=== PATIENT | male | born 1980 | race African-American/Black ===

== ENCOUNTER 2018-10-12 12:49 | Emergency (ER) | payer MEDICAID ==
[~2018-10-12] VITALS: Ht 177.8 cm; Wt 136.4 kg
[2018-10-12 12:59] VITALS: Ht 177.8 cm; Wt 136.4 kg
[2018-10-12 14:01] LABS: ALBUMIN 3.3 g/dL (3.4-5.0); ALKALINE PHOSPHATASE 84 U/L (46-116); ALT (SGPT) 16 U/L (10-68); BILIRUBIN - TOTAL 0.45 mg/dL (0.2-1.3); CALC OSMOLALITY 277 mosm/kg (275-300); CALCIUM 8.7 mg/dL (8.5-10.1); CARBON DIOXIDE 26.9 mmol/L (21.0-32.0); CHLORIDE - SERUM 105 mmol/L (98-107); CREATININE - SERUM 0.9 mg/dL (0.6-1.3); GLUCOSE 107 mg/dL (74-106); POTASSIUM - SERUM 4.5 mmol/L (3.5-5.1); PROTEIN - SERUM 7.6 g/dL (6.4-8.2); SODIUM 140 mmol/L (136-145); UREA NITROGEN 10 mg/dL (7-18); eGFR NON AFRICAN AMERICAN > 90 mL/min (90-120)
[2018-10-12 14:02] LABS: BASOPHILS 0.2 % (0-2); EOSINOPHILS 1.3 % (0-7); HEMATOCRIT 40.5 % (42.0-54.0); IMMATURE GRANULOCYTES 0.1 % (0-5); LYMPHOCYTES 25.6 % (15-50); MCH 25.8 pg (26.0-34.0); MCHC 32.1 g/dL (31.0-37.0); MCV 80.5 fL (80.0-100.0); MONOCYTES 11.7 % (2-11); NEUTROPHILS 61.1 % (40-80); PLATELET COUNT 202 10x3/uL (130-400); RBC 5.03 10x6/uL (4.20-6.10); RDW 15.1 % (11.5-14.5); WBC 10.9 10x3/uL (4.8-10.8)
[2018-10-12 14:12] LABS: CKMB 1.8 U/L (0.0-3.6); CREATINE KINASE 328 UL (21-232); PRO BNP 56 pg/mL (0-125); TROPONIN-I < 0.017 ng/mL (0.000-0.060)
[2018-10-12] MEDS ORDERED: NAPROSYN500 MG PO (16:32)
[2018-10-12 16:48] VITALS: BP 158/88
== END 2018-10-12 16:48 | disposition home or self-care (01) ==
LOC: D.ER 12:49
PROVIDERS: Family Medicine
DX: M93.98 Osteochondropathy, unspecified other (principal); R07.9 Chest pain, unspecified; E66.01 Morbid (severe) obesity due to excess calories

== ENCOUNTER 2019-01-16 08:15 | Observation (INO) | payer MEDICAID ==
[~2019-01-16] VITALS: Ht 177.8 cm; Wt 178.7 kg
--- NOTE | ~2019-01-16 | HEMODYNAMI ---
PATIENT:CHANDRAKANT VILLELA MEDICAL RECORD: [id number] : [birth year] [address] [id number] ADMISSION DATE: 01/16/19 Generatedon:01/17/201911:04 Patient name: CHANDRAKANT VILLELA Patient #: [id number] SSN: : 1980 Date of study: 01/17/2019 Page: Of Hemodynamic Procedure Report Patient Data Patient Demographics Procedure consent was obtained First Name: CHANDRAKANT Gender: Male Last Name: TIKA : 1980 Patient #: [id number] Age: 38 year(s) Race: Black Additional ID: [id number] Contact details Address: [address] [place] [address] State: [place] City: [facility] Zip code: [address] Past Medical History Allergies: No known allergies Admission Admission Data Admission Date: 01/16/2019 Admission Time: 12:27 Room #: [facility] Height (in.): 69.69 BSA: 2.78 (m2) Height (cm.): 177 BMI: 57.04 (kg/m2) Weight (lbs.): 393.95 Weight (kg.): 178.69 Lab Results Lab Result Date: 01/17/2019 Lab Result Time: 0:00 Biochemistry Name Units Result Min Max BUN mg/dl 11 --(-*--)-- 7 18 Creatinine mg/dl 1 --(--*-)-- 0.6 1.3 CBC Name Units Result Min Max Hematocrit % 42.4 --(*---)-- 42 54 Hemoglobin g/dl 13.5 --(*---)-- 13.5 17.5 Procedure Procedure Types Cath Procedure Diagnostic Procedure C [facility] w/Coronaries Procedure Description Procedure Date Procedure Date: 01/17/2019 Procedure Start Time: 10:50 Procedure End Time: 11:02 Procedure Staff Name Function Gaudencio Calvillo MD Performing Physician Mary Drake RT Monitor Chin Roman RN Nurse Addi Justin RT Scrub Procedure Data Cath Procedure Fluoroscopy Diagnostic fluoroscopy Total fluoroscopy Time: 3.7 time: 3.7 min min Diagnostic fluoroscopy Total fluoroscopy dose: 768 dose: 768 mGy mGy Contrast Material Contrast Material Type Amount (ml) Isovue 300 61 Entry Location Entry Primary Successful Side Size Upsize Upsize Entry Closure Chandra ccessful Closure Location (Fr) 1 (Fr) 2 (Fr) Remarks Device Remarks Radial Right 6 Fr Mechanical artery Short Compression Estimated blood loss: 5 ml Diagnostic catheters Device Type Used For End Catheter Placement DIAGNOSTIC Uxbridge 110cm 5 Procedure Fr catheter ([id number]) Procedure Complications No complications Procedure Medications Medication Administration Route Dosage Oxygen 8 l/min Lidocaine 2% added to field 20 Heparin Flush Bag added to field 2 bags (1000units/500ml NS) 0.9% NaCl I.V. 100 ml/hr Radial Cocktail I.A. 1 syringe (Verapomil 2mg/Nitro 400mcg/Heparin 1500units) Versed I.V. 1 mg Fentanyl I.V. 50 mcg Versed I.V. 1 mg Fentanyl I.V. 50 mcg Fentanyl I.V. 50 mcg Fentanyl I.V. 50 mcg Hemodynamics Rest BSA: 2.78 (m2) HGB: 13.5 (g/dl) O2 Consumption: Estimated: 329.97 (ml/min) O2 Co nsumption indexed: Estimated:118.69 (ml/min/m) Heart Rate: 60 (bpm) Pressure Samples Time Site Value (mmHg) Purpose Heart Use Rate(bpm) 10:53 LV 141/16,22 Snapshot 62 10:53 LV 140/17,23 Snapshot 60 10:54 AO 141/104(121) Pullback 72 10:54 LV 144/15,24 Pullback 72 Gradients Valve Time Site 1 Site 2 Mean SEP/DFP Peak To Heart Use (mmHg) (sec/min) Peak Rate (mmHg) (bpm) Aortic 10:54 LV AO 4 14 3 72 144/15,24 141/104(121) Calculations Valve P-P Mean Valve Index Valve Source Name Gradient Area Flow (cm2) Aortic 3 4 3 4 Snapshots Pre Cath Intra NCS Post Cath Vital Signs Time Heart Resp SPO2 etCO2 NIBP (mmHg) Rhythm Pain Sedation Rate (ipm) (%) (mmHg) Status Level (bpm) 10:37:18 56 12 97 0 179/109(139) NSR 0 (11) 10(A) , No pain 10:42:33 58 20 98 0 163/116(129) NSR 0 (11) 10(A) , No pain 10:46:47 55 23 94 0 147/101(119) NSR 0 (11) 10(A) , No pain 10:50:55 59 16 98 0 162/101(135) NSR 0 (11) 9(A) , No pain 10:55:09 66 14 93 0 155/96(131) NSR 0 (11) 9(A) , No pain 10:59:19 59 13 96 0 156/109(129) NSR 0 (11) 10(A) , No pain Medications Time Medication Route Dose Verified Delivered Reason Notes Effectiveness by by 10:44:23 Oxygen simple 8 l/min Gaudencio Neely used for mask St Billy Roman RN procedure 10:44:31 Lidocaine 2% added 20ml Gaudencio Goodrichory for local to vial [facility] anesthetic field MD FARRELL 10:44:49 Heparin Flush added 2 bags Gaudencio Ratliff used for Bag to [facility] procedure (1000units/500ml field MD FARRELL NS) 10:44:58 0.9% NaCl I.V. 100 Gaudencio Neely Per ml/hr St Billy Roman RN physician 10:47:02 Versed I.V. 1 mg Gaudencio Vasquezie for sedation St Billy Roman RN, MD 10:47:08 Fentanyl I.V. 50 mcg Gaudencio Vasquezie for sedation St Billy Roman RN, MD 10:50:49 Versed I.V. 1 mg Gaudencio Neely for sedation St Billy Roman RN, MD 10:50:52 Fentanyl I.V. 50 mcg Gaudencio Vasquezie for sedation St Billy Roman RN, MD 10:53:04 Radial Cocktail I.A. 1 Gaudencio Ratliff for (Verapomil syringe [facility] vasodilation 2mg/Nitro MD FARRELL 400mcg/Heparin 1500units) 10:53:14 Fentanyl I.V. 50 mcg Gaudencio Vasquezie for sedation St Billy Roman RN, MD 10:56:32 Fentanyl I.V. 50 mcg Gaudencio Vasquezie for sedation St Billy Roman RN, MD Procedure Log Time Note 10:07:45 Addi AMES(R) sent for patient. Start room use. 10:07:53 Time tracking: Call back (After hours or weekends) 10:08:04 Plan of Care:Hemodynamics will remain stable., Cardiac rhythm will remain stable., Comfort level will be maintained., Respiratory function will remain adequate., Patient/ family verbilizes understanding of procedure., Procedure tolerated without complication., Recovers from procedure without complications.. 10:21:23 Signed procedure consent form obtained from patient. 10:21:25 Diagnostic Cath status Elective 10:22:12 Patient Weight : 393.95 lbs 10::18 Patient Height : 69.69 inches 10:22:33 Patient allergic to No known allergies 10::12 Lab Result : BUN 11 mg/dl 10::12 Lab Result : Creatinine 1 mg/dl 10::12 Lab Result : Hemoglobin 13.5 g/dl 10::12 Lab Result : Hematocrit 42.4 % 10:29:26 Patient received from Med II to CCL 1 Alert and oriented. Tansferred to table in Supine position. 10:29:27 Warm blankets applied, and alexandrea hugger turned on for patient comfort. 10:29:28 Correct patient and procedure confirmed by team. 10:29:28 ECG and BP/O2 sat monitors applied to patient. 10:36:09 Vital chart was started 10:42:46 Rhythm: sinus rhythm 10:42:48 Baseline sample Acquired. 10:42:50 Full Disclosure recording started 10:42:53 Pre-procedure instructions explained to patient. 10:42:53 Pre-op teaching completed and patient verbalized understanding. 10:42:55 Family in patients room. 10:42:56 Patient NPO since Midnight. 10:42:58 Is patient on blood thinner?No 10:42:59 Patient diabetic? No. 10:43:01 Previous problem with sedation/anesthesia? No ? 10:43:03 Snore? Yes 10:43:04 Sleep apnea? Yes 10:43:05 Deviated septum? No 10:43:06 Opens mouth fully? Yes 10:43:07 Sticks out tongue? Yes 10:43:09 Airway obstruction? No ? 10:43:11 Dentures? No ? 10:43:13 Modified Claudio's test Ulnar < 7 seconds 10:43:15 Patient pain scale 0/10 ?. 10:43:24 IV patent on arrival in left forearm with 0.9% NaCl at [facility]. 10:43:27 Lab results completed and on chart. 10:43:30 Right Radial & Right Groin area was prepped with chlora-prep and draped in sterile fashion 10:43:31 Alarms reviewed by R. N. 10:43:31 Sharps counted by scrub and verified by R.N. 10:43:33 --------ALL STOP TIME OUT------ 10:43:33 Final Timeout: patient, procedure, and site verified with staff and physician. All members of the team are in agreement. 10:43:35 Right Radial & Right Groin site verified by team. 10:43:37 Fire Safety Assessment: A--An alcohol-based skin anteseptic being used preoperatively., C--Open oxygen or nitrous oxide is being used., D--An ESU, laser, or fiber-optic light is being used. 10:43:40 Physical assessment completed. ASA score P 2 - A patient with mild systemic disease as per Gaudencio Calvillo MD. 10:43:44 Sedation plan: IV Moderate Sedation Medication:Versed, Fentanyl 10:43:49 Use device set Radial Dx or PCI 10:43:49 ACIST Syringe (21294) opened to sterile field. 10:43:50 Bag Decanter () opened to sterile field. 10:43:51 ACIST Hand Control (23168) opened to sterile field. 10:43:51 ACIST Manifold (01426) opened to sterile field. 10:43:52 Tegaderm 4 x 4 (1626W) opened to sterile field. 10:43:53 Medline Cath Pack ([id number]) opened to sterile field. 10:43:53 DIAGNOSTIC WIRE .035 260cm J wire (709326) opened to sterile field. 10:43:54 MBrace Wrist Support ([id number]) opened to sterile field. 10:43:55 SHEATH 6FR Slender (64-7550) opened to sterile field. 10:44:23 Oxygen 8 l/min simple mask was administered by Chin Roman RN; used for procedure; 10:44:31 Lidocaine 2% 20ml vial added to field was administered by Gaudencio Calvillo MD; for local anesthetic; 10:44:49 Heparin Flush Bag (1000units/500ml NS) 2 bags added to field was administered by Gaudencio Calvillo MD; used for procedure; 10:44:58 0.9% NaCl 100 ml/hr I.V. was administered by Chin Roman RN; Per physician; 10:47:02 Versed 1 mg I.V. was administered by Chin Roman RN; for sedation; 10:47:08 Fentanyl 50 mcg I.V. was administered by Chin Roman RN; for sedation; 10:50:09 Procedure started. 10:50:10 Zero performed for pressure channel P1 10:50:31 Local anesthetic to right radial artery with Lidocaine 2% by Gaudencio Calvillo MD.INITIAL ACCESS ONLY 10:50:49 Versed 1 mg I.V. was administered by Chin Roman RN; for sedation; 10:50:52 Fentanyl 50 mcg I.V. was administered by Chin Roman RN; for sedation; 10:52:03 A 6 Fr Short sheath was inserted into the Right Radial artery 10:52:35 A DIAGNOSTIC Uxbridge 110cm 5 Fr catheter ([id number]) was advanced over the wire and used for Procedure. 10:53:04 Radial Cocktail (Verapomil 2mg/Nitro 400mcg/Heparin 1500units) 1 syringe I.A. was administered by Gaudencio Calvillo MD; for vasodilation; 10:53:10 LV gram done using SINGH 10:53:12 Injector settings: Ml/sec: 5, Volume: 15, 10:53:14 Fentanyl 50 mcg I.V. was administered by Chin Roman RN; for sedation; 10:53:42 LV hemodynamics recorded. 10:53:57 EF : 55 % 10:54:30 RCA angiography performed. 10:55:03 Catheter exchanged over wire. 10:55:14 UNABLE TO ENGAGE LCA 10:55:32 GUIDE 5FR EBU 3.5 catheter ([id number]) opened to sterile field. 10:56:18 5 Fr EBU 3.5 guide catheter was inserted over the wire 10:56:32 Fentanyl 50 mcg I.V. was administered by Chin Roman RN; for sedation; 11:00:23 LCA angiography performed. 11:00:27 Guide catheter removed. 11:00:32 Procedure ended.(Physican Out) 11:00:43 TR BAND Large ([id number]) opened to sterile field. 11:00:53 Sheath removed intact; hemostasis achieved with Mechanical Compression to the Right Radial artery. 11:01:25 Fluoroscopy time 03.70 minutes. 11::29 Fluoroscopy dose: 768 mGy 11::29 Flurop Dose total: 768 11::33 Contrast amount:Isovue 300 61ml. 11::34 Sharps counted by scrub and verified by R.N. 11:01:36 TR band inflated with 12cc of air. 11:01:39 Post-procedure physical assessment completed. ASA score P 2 - A patient with mild systemic disease as per Gaudencio Calvillo MD. 11:01:43 Post procedure rhythm: sinus rhythm 11::46 Estimated blood loss: 5 ml 11::48 Post procedure instruction explained to patient.Patient verbalizes understanding. 11::48 Patient needs reinforcement of post procedure teaching. 11:02:19 Procedure and supply charges have been captured, reviewed, submitted and are correct. 11:02:21 Procedure Complication : No complications 11:02:22 Vital chart was stopped 11:02:23 See physician's report for complete and final results. 11:02:25 Report given to Med II. 11:02:28 Patient transfered to Med II with Bed. 11:02:33 Procedure ended. 11:02:33 Full Disclosure recording stopped ::39 End room use (Document Last) Device Usage Item Name Manufacture Quantity Catalog Hospital Part Current Minimal Lot# / Number Charge Number Stock Stock Serial# Code ACIST Acist 1 98852 017846 529404 663119 20 Syringe Medical (27235) Systems Inc Bag Microtek 1 304247 41481 121187 5 Decanter Medical Inc. () ACIST Hand Acist 1 14660 670828 745086 324212 5 Control Medical (90281) Systems Inc ACIST Acist 1 80335 807020 231335 092503 5 Manifold Medical (71106) Systems Inc Tegaderm 4 3M 1 1626W 111204 984112 448439 5 x 4 (1626W) Medline Medline 1 [id number] 465348 73856 800940 5 Cath Pack ([id number]) DIAGNOSTIC St Matt 1 352757 778517 206234 988452 30 WIRE .035 260cm J wire (772937) MBrace Advanced 1 140-0250-00 528795 49163 288529 5 Wrist Vascular Support Dynamics ([id number]) SHEATH 6FR Terumo 1 [id number] 466541 096715 004064 5 Slender (80-7970) DIAGNOSTIC Terumo 1 40-8971 746778 722598 649882 5 Uxbridge 110cm 5 Fr catheter (996271) GUIDE 5FR Medtronic 1 [id number] 108185 337188 428322 1 EBU 3.5 catheter ([id number]) TR BAND Terumo 1 [id number] 842995 201630 864384 40 Large ([id number]) Signature Audit Edgar Stage Time Signature Unsigned Intra-Procedure 01/17/2019 Mary Drake 11:04:49 AM RT(R) Signatures Monitor : Mary Drake Signature : RT Date : Time : [address] [address]
--- NOTE | ~2019-01-16 | CN ---
PATIENT NAME:CHANDRAKANT VILLELA MEDICAL RECORD: [id number] : 78 LOCATION:[address] D.2112 ADMIT DATE: 01/16/19 ACCOUNT: [id number] CONSULTING PHYSICIAN: IDA ARMIJO MD REFERRING PHYSICIAN: ARIAN UP MD DATE OF CONSULTATION: 01/17/2019 HISTORY: A 38-year-old gentleman with strong family history of coronary artery disease including father passing away at age 38 with sudden cardiac , presented with marked hypertension and angina as well as abnormal ECG symptoms. It really began over the past week. He has previously been diagnosed with hypertension; however, not taking his medications at all. We are asked to see him concerning his cardiovascular status. PAST MEDICAL HISTORY: Includes history of hypertension, untreated. ALLERGIES: None known. MEDICATIONS: None currently. SOCIAL HISTORY: Nonsmoker and nondrinker. No set exercise program, but is able to take care of ADLs. No assistance with ambulation, etc. REVIEW OF SYSTEMS: The patient reports easy bruising but reports no swollen glands. The patient reports no fever, no night sweats, no significant weight gain, no significant weight loss. No significant exercise tolerance. The patient reports no dry eyes, no irritation, no vision change. Patient reports no difficulty hearing and no ear pain. Patient reports no frequent nose bleeds or nose and sinus problems. Patient reports on arm pain on exertion. No shortness of breath while lying down. No history of heart murmur. Patient reports no cough, no wheezing or coughing up blood. Patient reports no abdominal pain, no vomiting. Normal appetite. No diarrhea and not vomiting blood. No nausea and no constipation. Patient reports no incontinence. No difficulty urinating. No hematuria. No increased frequency. Patient reports no muscle aches. No weakness, no arthralgias, no back pain. No swelling of the extremities. Patient reports no abnormal mole, no jaundice, no rashes. Reports no loss of consciousness. No weakness and no numbness. No seizures, dizziness, or headaches. The patient reports no depression, no sleep disturbance, feeling safe in a relationship and no alcohol abuse. Patient reports on fatigue. Reports no runny nose or sinus pressure. No itching, no hives, and no frequent sneezing. PHYSICAL EXAMINATION: GENERAL: Pleasant gentleman, in no acute distress, appears stated age. VITAL SIGNS: Blood pressure 146/94. Pulse 63 and regular. HEENT: Normocephalic and atraumatic. NECK: No JVD or bruit. HEART: Regular. S4 gallop is noted. LUNGS: Diminished breath sounds in both bases. ABDOMEN: Soft and nontender. EXTREMITIES: Pulses are 1+ with 1+ edema. DIAGNOSTIC DATA: ECG has poor R wave progression. Q waves in lead III. IMPRESSION: CONSULT REPORT [id number] CHANDRAKANT VILLELA 1. Hypertensive urgency. 2. Acute coronary syndrome. PLAN: Plan is for diagnostic angiography and intervention based on above. TRANSINT:[id number] Voice Confirmation ID: [id number] DOCUMENT ID: [id number] IDA ARMIJO MD CC: [id number] DICTATION DATE: 01/17/19933 MARKETING ASSISTANT RETAIL DIVISION: 01/17/19 1117 ADM IN [place] [address] [place] [id number]
--- NOTE | ~2019-01-16 | OP ---
PATIENT NAME: CHANDRAKANT VILLELA MEDICAL RECORD: [id number] :[birth year] LOCATION:D.M2 D.2 ADMISSION DATE:01/16/19 SURGEON: IDA ARMIJO MD DATE OF OPERATION: 01/17/2019 PROCEDURE: Left heart catheterization, selective coronary angiography, right radial approach. CATHETERS: Westlake catheter, radial sheath. The procedure was well tolerated. The patient was returned to the pruitt. Sheath was removed. TR band was placed. FINDINGS: Left ventriculography in 30-degree SINGH view: Normal wall motion. Normal systolic function. CORONARY ANATOMY: LEFT MAIN: Left main is free of disease. LAD: Free of disease as is the diagonal system. CIRCUMFLEX: Circumflex is free of disease as is the marginal system. RIGHT CORONARY ARTERY: Dominant artery, free of disease. IMPRESSION: Normal LV systolic function. Normal coronary anatomy. TRANSINT:[id number] Voice Confirmation ID: [id number] DOCUMENT ID: [id number] IDA ARMIJO MD CC: [id number] DICTATION DATE: 01/17/19 1103 PROFESSOR OF PUBLIC ADMINISTRATION: 01/17/19 1120 ADM IN [facility] [address] [place] [id number]
[~2019-01-16 08:15] MED LIST: NAPROSYN500 MG PO
[2019-01-16 09:20] LABS: BASOPHILS 0.2 % (0-2); EOSINOPHILS 1.8 % (0-7); HEMATOCRIT 42.5 % (42.0-54.0); HEMOGLOBIN 13.6 g/dL (13.5-17.5); IMMATURE GRANULOCYTES 0.2 % (0-5); LYMPHOCYTES 26.2 % (15-50); MCH 25.2 pg (26.0-34.0); MCV 78.7 fL (80.0-100.0); MEAN PLATELET VOLUME 11.9 fL (7.4-10.4); NEUTROPHILS 57.6 % (40-80); PLATELET COUNT 222 10x3/uL (130-400); RDW 14.7 % (11.5-14.5); WBC 9.7 10x3/uL (4.8-10.8)
[2019-01-16 09:30] LABS: INR 1.11 (0.85-1.17); PROTIME 13.8 SECONDS (11.6-15.0)
[2019-01-16 09:31] LABS: APTT 32.2 SECONDS (22.8-39.4)
[2019-01-16 09:32] LABS: D-DIMER-QUANTITATIVE < 0.27 ug/mLFEU (0.20-0.54)
[2019-01-16 09:36] LABS: ALBUMIN 3.4 g/dL (3.4-5.0); ALKALINE PHOSPHATASE 85 U/L (46-116); ALT (SGPT) 24 U/L (10-68); BILIRUBIN - TOTAL 0.36 mg/dL (0.2-1.3); CALC OSMOLALITY 275 mosm/kg (275-300); CALCIUM 9.3 mg/dL (8.5-10.1); CHLORIDE - SERUM 103 mmol/L (98-107); GLUCOSE 97 mg/dL (74-106); POTASSIUM - SERUM 4.4 mmol/L (3.5-5.1); PROTEIN - SERUM 8.3 g/dL (6.4-8.2); SODIUM 138 mmol/L (136-145); UREA NITROGEN 13 mg/dL (7-18); eGFR NON AFRICAN AMERICAN 88 mL/min (90-120)
[2019-01-16 09:47] LABS: CKMB 1.8 U/L (0.0-3.6); LIPASE 83 U/L (73-393); TROPONIN-I < 0.017 ng/mL (0.000-0.060)
[2019-01-16 10:28] LABS: THYROID STIMULATING HORMONE 1.15 uIU/mL (0.36-3.74)
[2019-01-16 10:34] VITALS: BP 172/110
--- NOTE | 2019-01-16 10:43 | NUR ---
UNABLE TO PROVIDE URINE SAMPLE AT THIS TIME, WILL TRY AGAIN
[2019-01-16 12:08] VITALS: BP 165/111
[2019-01-16 13:37] LABS: APPEARANCE CLEAR (CLEAR); BILIRUBIN NEGATIVE (NEGATIVE); COLOR YELLOW (YELLOW); GLUCOSE NEGATIVE (NEGATIVE); KETONE NEGATIVE (NEGATIVE); NITRITE NEGATIVE (NEGATIVE); PROTEIN NEGATIVE (NEGATIVE); UROBILINOGEN NORMAL (NORMAL)
[2019-01-16 13:56] VITALS: BP 126/80
--- NOTE | 2019-01-16 15:04 | NUR ---
RECIEVED PATIENT VIA WHEELCHAIR FROM ED. PATIENT ALERT/ORIENTED AND AMBULATORY. ANSWERS APPROPRIATLEY. 20 GAUGE IV TO LEFT AC. PATIENT SITTING TO SIDE OF BED. NO DISTRESS.
[2019-01-16] MEDS ORDERED: ACETAMINOPHEN500 M1 PO (15:07)
[2019-01-16] MEDS ORDERED: IBUPROFEN600 MG PO (15:08)
[2019-01-16 16:46] VITALS: BP 166/110
[2019-01-16 17:14] VITALS: BP 166/110; Ht 177.8 cm; Wt 178.7 kg
--- NOTE | 2019-01-16 18:03 | NUR ---
RESTING IN BED WITH LIGHTS OFF, ATTENTION TOWARD TELEVISION. CALL LIGHT ANSWERED, PATIENT STATED IT WAS AN ACCIDENT. NO DISTRESS. DENIES NEEDS.
--- NOTE | 2019-01-16 19:40 | NUR ---
RECEIVED REPORT, WILL ASSUME CARE OF PT, DENIES ANY NEEDS AT THIS TIME, BED IS LOW, SRX2, CALL LIGHT IN REACH, WILL CONTINUE PLAN OF CARE
[2019-01-16 20:00] VITALS: BP 146/85
--- NOTE | 2019-01-16 21:42 | NUR ---
PM MEDS GIVEN WITH A GLASS OF WATER, WILL CONTINUE PLAN OF CARE
--- NOTE | 2019-01-16 22:30 | NUR ---
COMPLAINS OF HEADACHE, GAVE NORCO ORDER
[2019-01-17] VITALS (7 sets, daily range): BP systolic 132–148; BP diastolic 75–94
[2019-01-17 01:02] LABS: UDS - AMPHET NEGATIVE QUAL (NEGATIVE); UDS - BARB NEGATIVE QUAL (NEGATIVE); UDS - BENZO NEGATIVE QUAL (NEGATIVE); UDS - COCAINE NEGATIVE QUAL (NEGATIVE); UDS - OPIATE POSITIVE QUAL (NEGATIVE); UDS - PCP NEGATIVE QUAL (NEGATIVE); UDS - THC NEGATIVE QUAL (NEGATIVE)
[2019-01-17 04:57] LABS: BASOPHILS 0.2 % (0-2); EOSINOPHILS 1.8 % (0-7); HEMATOCRIT 42.4 % (42.0-54.0); HEMOGLOBIN 13.5 g/dL (13.5-17.5); IMMATURE GRANULOCYTES 0.3 % (0-5); LYMPHOCYTES 29.1 % (15-50); MCH 25.3 pg (26.0-34.0); MCHC 31.8 g/dL (31.0-37.0); MCV 79.4 fL (80.0-100.0); MEAN PLATELET VOLUME 11.9 fL (7.4-10.4); MONOCYTES 14.7 % (2-11); NEUTROPHILS 53.9 % (40-80); PLATELET COUNT 216 10x3/uL (130-400); RBC 5.34 10x6/uL (4.20-6.10); RDW 14.9 % (11.5-14.5); WBC 9.8 10x3/uL (4.8-10.8)
--- NOTE | 2019-01-17 05:00 | NUR ---
ASSESSMENT REVIEWED AND IN AGREEMENT. PT RESTING WITH NO DISTRESS. MONITOR AND CPOC.
[2019-01-17 05:44] LABS: ALBUMIN 3.2 g/dL (3.4-5.0); ALKALINE PHOSPHATASE 73 U/L (46-116); ALT (SGPT) 18 U/L (10-68); BILIRUBIN - TOTAL 0.46 mg/dL (0.2-1.3); CALC OSMOLALITY 263 mosm/kg (275-300); CALCIUM 9.3 mg/dL (8.5-10.1); CARBON DIOXIDE 24.9 mmol/L (21.0-32.0); CHLORIDE - SERUM 102 mmol/L (98-107); CREATINE KINASE 174 UL (21-232); GLUCOSE 94 mg/dL (74-106); PROTEIN - SERUM 7.8 g/dL (6.4-8.2); SODIUM 132 mmol/L (136-145); TROPONIN-I < 0.017 ng/mL (0.000-0.060); UREA NITROGEN 11 mg/dL (7-18); eGFR NON AFRICAN AMERICAN 88 mL/min (90-120)
--- NOTE | 2019-01-17 07:29 | NUR ---
AM ROUNDS COMPLETED. INTRODUCED MYSELF TO PT PRIMARY RN FOR TODAYS SHIFT. PT IS A&O SITTING UP IN BED WITH SPOUSE AT BEDSIDE. SHIFT ASSESSMENT COMPLETED. PT STATES HE SLEPT OKAY BUT STILL C/O PRESSURE AND THROBBING IN HIS HEAD AND FACIAL. PROVIDED PT WITH PRN PAIN MEDICATION REQUESTED. PT SITTING UP IN BED WAITING ON BREAKFAST. NO FURTHER NEEDS. CL IN REACH, BED IN LOWEST, SIDE RAILS X2. WILL CTM.
--- NOTE | 2019-01-17 08:59 | NUR ---
AT BEDSIDE FOR CONSULT DISCUSSING DISEASE PROCESS AND PLANNING. PT WILL HAVE A CARDIAC CATH LATER TODAY AND IS NPO STARTING NOW. PT VERBALIZED UNDERSTANDING AND DENIES ANY QUESTIONS OR CONCERNS. PT IS GOING TO PREP AND SHOWER HIMSELF. SUPPLIES GIVEN. WILL OBTAIN CONSENTS AND CONTINUE WITH PLAN OF CARE.
--- NOTE | 2019-01-17 09:48 | NUR ---
NURSING INFORMATICS SPECIALIST CALLED TO PRE-OP PT. PRE-OP MEDICATIONS GIVEN AND CONSENTS SIGNED AND PLACED IN CHART. PT IN BED READY TO GO WAITING ON NURSING INFORMATICS SPECIALIST.
--- NOTE | 2019-01-17 10:23 | NUR ---
PT LEAVING FOR RESIDENT CARE SUPERVISOR NOW. DENIES ANY CURRENT NEEDS. WILL CTM.
[2019-01-17 10:29] LABS: CALC OSMOLALITY 272 mosm/kg (275-300); CARBON DIOXIDE 27.7 mmol/L (21.0-32.0); CHLORIDE - SERUM 101 mmol/L (98-107); GLUCOSE 90 mg/dL (74-106); POTASSIUM - SERUM 4.1 mmol/L (3.5-5.1); SODIUM 137 mmol/L (136-145); UREA NITROGEN 11 mg/dL (7-18); eGFR NON AFRICAN AMERICAN 88 mL/min (90-120)
--- NOTE | 2019-01-17 11:26 | NUR ---
PT BACK FROM PRODUCTION SUPPLY EQUIPMENT TENDER AND RESTING QUIETLY IN BED WITH SPOUSE AT BEDSIDE. TELEMETRY APPLIED AND PT RUNNING SINUS BRADYCARDIC. TR BAND TO R.WRIST CDI NO S/S OF BLEEDING OR HEMATOMA NOTED. VSS AND BEING MONITERED PER POLICY. NS INFUSING ORDERED. PT DENIES ANY CURRENT PAIN OR NEEDS. CL IN REACH. WILL CTM.
--- NOTE | 2019-01-17 11:57 | NUR ---
VSS AND STILL BEING MONITERED PER POST PROCEDURE POLICY. PT IS SLEEPY BUT AWAKES WITHOUT ANY DIFFICULTIES. RR NONLABORED ON RA. R.WRIST TR BAND REMAINS INFLATED AND SITE IS CDI NO S/S OF BLEEDING OR HEMATOMA NOTED. PT DENIES ANY CURRENT PAIN OR NEEDS AT THIS TIME. CL IN REACH, BED IN LOWEST, SIDE RAILS X2. WILL CTM.
--- NOTE | 2019-01-17 12:40 | NUR ---
R.WRIST TR BAND REMAINS CDI NO S/S OF BLEEDING OR HEMATOMA NOTED. VSS AND STILL BEING MONITERED PER POST PROCEDURE POLICY. PT STILL SLEEPY AND NOT WANTING TO EAT YET. CL IN REACH, BED IN LOWEST, SIDE RAILS X2. WILL CTM.
--- NOTE | 2019-01-17 12:46 | NUR ---
REMOVED 3CC OF AIR FROM TR BAND AND NO BLEEDING NOTED. WILL CONTINUE TO REMOVE AIR ABLE. NO CURRENT NEEDS.
--- NOTE | 2019-01-17 13:00 | NUR ---
REMOVED 5CC OF AIR FROM R.WRIST TR BAND NO BLEEDING NOTED. WILL CTM.
--- NOTE | 2019-01-17 13:18 | NUR ---
REMOVED REMAINING AIR FROM TR BAND. NO S/S OF BLEEDING OR HEMATOMA NOTED. ASSISTED PT UP IN BED FOR COMFORT. PT RESTING QUIETLY EATING LUNCH. DENIES ANY CURRENT PAIN OR NEEDS. CL IN REACH, SPOUSE AT BEDSIDE. WILL CTM.
--- NOTE | 2019-01-17 14:13 | NUR ---
R.WRIST TR BAND MOVED COMPLETELY AND GUAZE WITH TEGADERM PLACED. NO S/S OF BLEEDING OR HEMATOMA NOTED. PT SITTING UP IN BED STILL EATING LUNCH. C/O SINUS PRESSURE RETURNING, REQUESTED AND PROVIDED WITH PRN NORCO FOR PAIN. PT VOICED THANKS. NO FURTHER NEEDS AT THIS TIME. CL IN REACH, BED IN LOWEST, SIDE RAILS X2. WILL CTM.
--- NOTE | 2019-01-17 17:53 | NUR ---
PT SITTING UP IN BED RESTING QUIETLY. PT ATE 100% OF HIS DINNER AND STATES HE IS FEELING "ALRIGHT" STILL C/O HIS PRESSURE IN HIS HEAD/FACIAL. PROVIDED PT WITH PRN TRAMADOL FOR BREAK-THROUGH PAIN. PT VOICED THANKS AND DENIES ANY FURTHER NEEDS AT THIS TIME. CL IN REACH, BED IN LOWEST, SIDE RAILS X2. WILL CTM.
--- NOTE | 2019-01-17 20:00 | NUR ---
RECEIVED REPORT, WILL ASSUME CARE OF PT, DENIES ANY NEEDS AT THIS TIME, AT BEDSIDE, BED IS LOW, SRX2, CALL LIGHT IN REACH, WILL CONTINUE PLAN OF CARE
--- NOTE | 2019-01-17 21:20 | NUR ---
COMPLAINS OF HEADACHE, GAVE NORCO ORDER, WILL CONTINUE PLAN OF CARE
[2019-01-18 00:23] VITALS: BP 130/87
--- NOTE | 2019-01-18 05:21 | NUR ---
I have reviewed this patient and I concur with the Shift Assessment completed by the Licensed Practical Nurse today this shift.
[2019-01-18 05:30] VITALS: BP 136/89
[2019-01-18 06:45] LABS: BASOPHILS 0.3 % (0-2); EOSINOPHILS 2.4 % (0-7); HEMATOCRIT 40.4 % (42.0-54.0); HEMOGLOBIN 12.7 g/dL (13.5-17.5); IMMATURE GRANULOCYTES 0.1 % (0-5); LYMPHOCYTES 35.4 % (15-50); MCH 24.9 pg (26.0-34.0); MCHC 31.4 g/dL (31.0-37.0); MCV 79.1 fL (80.0-100.0); MEAN PLATELET VOLUME 12.1 fL (7.4-10.4); NEUTROPHILS 49.8 % (40-80); PLATELET COUNT 208 10x3/uL (130-400); RBC 5.11 10x6/uL (4.20-6.10); RDW 14.8 % (11.5-14.5)
[2019-01-18 06:46] LABS: CALC OSMOLALITY 279 mosm/kg (275-300); CARBON DIOXIDE 28.5 mmol/L (21.0-32.0); CHLORIDE - SERUM 104 mmol/L (98-107); GLUCOSE 89 mg/dL (74-106); POTASSIUM - SERUM 4.2 mmol/L (3.5-5.1); SODIUM 141 mmol/L (136-145); UREA NITROGEN 13 mg/dL (7-18); eGFR NON AFRICAN AMERICAN 88 mL/min (90-120)
[2019-01-18 07:03] LABS: WBC 6.8 10x3/uL (4.8-10.8)
[2019-01-18 08:04] VITALS: BP 140/83
[2019-01-18] MEDS ORDERED: METOPROLOL TART50 MG PO (09:10)
[2019-01-18] MEDS ORDERED: NORVASC5 MG PO (09:10)
[2019-01-18] MEDS ORDERED: AUGMENTIN 875-11 TAB PO (09:10)
[2019-01-18] MEDS ORDERED: FLORAJEN3 CAPS460 MG PO (09:11)
--- NOTE | 2019-01-18 10:14 | MORECARE ---
CASE MANAGEMENT DISCHARGE SUMMARY PATIENT: CHANDRAKANT VILLELA UNIT: [id number] ADM DATE: 01/16/19 AGE: 38 : [birth year] SEX: M ROOM/BED: D.2112 AUTHOR: BUCK MCKINNEY PHYSICIAN: REFERRING PHYSICIAN: ARIAN UP MD DATE OF SERVICE: 01/18/19 Discharge Plan Patient Name: CHANDRAKANT VILLELA Facility: [facility]:[place] : 1980 Planned Disposition: Home Anticipated Discharge Date: 01/18/19 Discharge Date: Expected LOS: 2 Initial Reviewer: [email or web address] Initial Review Date: 01/18/2019 Generated: 01/18/19 11:14 am Patient Name: CHANDRAKANT VILLELA Page [phone] at 1014 All edits/amendments must be made on the electronic document DICTATION DATE: 01/18/19 1013 DANCE PROFESSOR: JINA 01/18/19 1013 RPT#: [id number] DC DATE: STATUS: ADM IN [facility] [address] [place] [address] END OF REPORT
--- NOTE | 2019-01-18 10:34 | NUR ---
DISCHARGE TEACHING PROVIDED AND PAPERS SIGNED. PT VERBALIZED UNDERSTANDING AND DENIES ANY QUESTIONS OR CONCERNS. D/C PTS L.AC PIV WITH CATHETER TIP FULLY INTACT. PT IS ON THE PHONE WITH HIS TRANSPORTATION. NO CURRENT NEEDS. WILL CTM.
--- NOTE | 2019-01-18 10:42 | NUR ---
PT READY TO GO. ALL BELONGINGS COLLECTED AND SENT WITH PT. WILL ESCORT PT DOWN AT THIS TIME.
== END 2019-01-18 10:43 | disposition home or self-care (01) ==
LOC: D.ER 08:15 → D.M2 12:27 → D.EDHOLD 12:27 → OBSVTIME 12:27 → D.M2 13:29
PROVIDERS: Family Medicine; Internal Medicine Interventional Cardiology; ADMIT Internal Medicine Nephrology; ATTEND Internal Medicine Nephrology
DX: I16.0 Hypertensive urgency (principal); Z82.49 Family history of ischemic heart disease and other diseases of the circulatory system; R94.31 Abnormal electrocardiogram [ECG] [EKG]; E66.01 Morbid (severe) obesity due to excess calories; Z68.43 Body mass index [BMI] 50.0-59.9, adult; G47.33 Obstructive sleep apnea (adult) (pediatric); J32.9 Chronic sinusitis, unspecified

== ENCOUNTER 2019-08-11 07:35 | Emergency (ER) | payer MEDICAID ==
[~2019-08-11] VITALS: Ht 177.8 cm; Wt 180.0 kg
[~2019-08-11 07:35] MED LIST changes: +ACETAMINOPHEN500 M1 PO; +AUGMENTIN 875-11 TAB PO; +FLORAJEN3 CAPS460 MG PO; +IBUPROFEN600 MG PO; +METOPROLOL TART50 MG PO; +NORVASC5 MG PO
[2019-08-11 07:47] VITALS: Ht 177.8 cm; Wt 180.0 kg
[2019-08-11] MEDS ORDERED: IBUPROFEN800 MG PO (09:11)
[2019-08-11] MEDS ORDERED: CYCLOBENZAPRINE10 MG PO (09:11)
[2019-08-11] MEDS ORDERED: ACETAMINOPHEN500 M1 PO (09:11)
[2019-08-11 09:51] VITALS: BP 130/82
== END 2019-08-11 09:51 | disposition home or self-care (01) ==
LOC: D.ER 07:35
DX: S06.0X9A Concussion with loss of consciousness of unspecified duration, initial encounter (principal); W17.89XA Other fall from one level to another, initial encounter; M79.18 Myalgia, other site; M25.562 Pain in left knee; M25.561 Pain in right knee

== ENCOUNTER 2020-02-20 17:38 | Emergency (ER) | payer OTHER ==
[~2020-02-20] VITALS: Ht 177.8 cm; Wt 190.9 kg
[~2020-02-20 17:38] MED LIST changes: +CYCLOBENZAPRINE10 MG PO; +IBUPROFEN800 MG PO
[2020-02-20 17:44] VITALS: Ht 177.8 cm; Wt 190.9 kg
[2020-02-20 18:19] LABS: HEMATOCRIT 39.4 % (42.0-54.0); HEMOGLOBIN 11.9 g/dL (13.5-17.5); MCH 23.6 pg (26.0-34.0); MCHC 30.2 g/dL (31.0-37.0); MCV 78.2 fL (80.0-100.0); MEAN PLATELET VOLUME 11.4 fL (7.4-10.4); RBC 5.04 10x6/uL (4.20-6.10); RDW 16.3 % (11.5-14.5); WBC 8.2 10x3/uL (4.8-10.8)
[2020-02-20 18:20] LABS: PLATELET COUNT 264 10x3/uL (130-400)
[2020-02-20 18:26] LABS: APTT 31.8 SECONDS (22.8-39.4); CALC OSMOLALITY 274 mosm/kg (275-300); CALCIUM 9.1 mg/dL (8.5-10.1); CARBON DIOXIDE 28.3 mmol/L (21.0-32.0); CHLORIDE - SERUM 105 mmol/L (98-107); CREATININE - SERUM 1.2 mg/dL (0.6-1.3); GLUCOSE 104 mg/dL (74-106); INR 1.1 (0.85-1.17); POTASSIUM - SERUM 4.1 mmol/L (3.5-5.1); PROTIME 14.1 SECONDS (11.6-15.0); SODIUM 138 mmol/L (136-145); UREA NITROGEN 9 mg/dL (7-18); eGFR NON AFRICAN AMERICAN 71 mL/min (90-120)
[2020-02-20 18:41] LABS: ALBUMIN 3.4 g/dL (3.4-5.0); ALKALINE PHOSPHATASE 88 U/L (30-120); ALT (SGPT) 23 U/L (10-68); BILIRUBIN - TOTAL 0.35 mg/dL (0.2-1.3); CKMB 1.1 U/L (0.0-3.6); CREATINE KINASE 253 UL (21-232); EOSINOPHILS 3 % (0-7); LYMPHOCYTES 32 % (15-50); MONOCYTES 3 % (2-11); NEUTROPHILS 62 % (40-80); PROTEIN - SERUM 7.9 g/dL (6.4-8.2)
[2020-02-20 18:42] LABS: PLATELET ESTIMATE NORMAL; TARGET CELLS OCC; TEAR DROP CELLS 1+
[2020-02-20 18:47] LABS: TROPONIN-I < 0.017 ng/mL (0.000-0.060)
[2020-02-20] MEDS ORDERED: LASIX20 MG PO (21:34)
[2020-02-20] MEDS ORDERED: ZITHROMAX500 MG PO (21:34)
[2020-02-20] MEDS ORDERED: K-TAB10 MEQ PO (21:35)
[2020-02-20 22:00] LABS: PRO BNP 48 pg/mL (0-125)
[2020-02-20 22:01] LABS: TROPONIN-I < 0.017 ng/mL (0.000-0.060)
[2020-02-20 22:42] VITALS: BP 148/79
== END 2020-02-20 22:42 | disposition home or self-care (01) ==
LOC: D.ER 17:38
PROVIDERS: Emergency Medicine; Family Medicine
DX: R07.89 Other chest pain (principal); E66.01 Morbid (severe) obesity due to excess calories; I87.303 Chronic venous hypertension (idiopathic) without complications of bilateral lower extremity; I10 Essential (primary) hypertension

== ENCOUNTER 2021-01-17 08:50 | Inpatient (IN) | payer OTHER ==
[2021-01-17] VITALS (8 sets, daily range): BP systolic 124–160; BP diastolic 64–94; Ht 177.8 cm; Wt 208.6 kg
[~2021-01-17] VITALS: Ht 177.8 cm; Wt 208.6 kg
[~2021-01-17 08:50] MED LIST changes: +K-TAB10 MEQ PO; +LASIX20 MG PO; +ZITHROMAX500 MG PO
[2021-01-17 09:27] LABS: ANION GAP 11.9 mmol/L (8-16); CALCIUM 9.3 mg/dL (8.5-10.1); CARBON DIOXIDE 25.1 mmol/L (21.0-32.0); CREATININE - SERUM 1.2 mg/dL (0.6-1.3)
[2021-01-17 09:33] LABS: ALBUMIN 2.8 g/dL (3.4-5.0); BILIRUBIN - TOTAL 0.57 mg/dL (0.2-1.3); PROTEIN - SERUM 8.2 g/dL (6.4-8.2)
[2021-01-17 09:49] LABS: HEMATOCRIT 41.3 % (42.0-54.0); HEMOGLOBIN 13.3 g/dL (13.5-17.5); LYMPHOCYTE ABS# 1.33 10x3/uL (1.32-3.57); MCH 24.3 pg (26.0-34.0); MCHC 32.2 g/dL (31.0-37.0); MCV 75.5 fL (80.0-100.0); NEUTROPHIL ABS# 21.22 10x3/uL (1.78-5.38); PLATELET COUNT 213 10x3/uL (130-400); RBC 5.47 10x6/uL (4.20-6.10); RDW 17.2 % (11.5-14.5); WBC 25.1 10x3/uL (4.8-10.8)
[2021-01-17 10:04] LABS: INFLUENZA TYPE A NEGATIVE (NEGATIVE); INFLUENZA TYPE B NEGATIVE (NEGATIVE); SARS-CoV-2 ANTIGEN NEGATIVE- SARS-COV-2 (NEGATIVE)
[2021-01-17 10:13] LABS: APTT 31.9 SECONDS (22.8-39.4); INR 1.3 (0.85-1.17)
[2021-01-17 10:25] LABS: CKMB 2.6 U/L (0.0-3.6); CREATINE KINASE 413 UL (21-232); TROPONIN-I < 0.017 ng/mL (0.000-0.060)
[2021-01-17 11:09] LABS: BILIRUBIN NEGATIVE (NEGATIVE); KETONE SMALL mg/dL (NEGATIVE); NITRITE NEGATIVE (NEGATIVE)
[2021-01-17 11:10] LABS: BACTERIA FEW HPF (NONE SEEN); SQUAMOUS EPITHELIAL 0-5 HPF (0-4); WHITE CELLS - URINE 0-5 HPF (0-1)
[2021-01-17 13:01] LABS: LYMPHOCYTES 7 % (15-50); MONOCYTES 14 % (2-11); NEUTROPHILS 74 % (40-80); PLATELET ESTIMATE NORMAL; ROULEAUX OCC
--- NOTE | 2021-01-17 15:01 | NUR ---
PATIENT ARRIVED ON UNIT ABOUT 1430. NO DISTRESS NOTED. ADMISSION ASSESMENT CHARTED. NEW ORDERS INITIATED. MONITOR ROOM TO CALL WITH MONITOR SOON READY.
--- NOTE | 2021-01-17 16:51 | NUR ---
MÓNICA, DIRECTOR OF GIFT PLANNING INSERTED 22 G LEFT AC IV, X1 ATTEMPT. RESTARTED NS AT 125/HR. PREVIOUS IV IN RIGHT FOREARM INFILTRATED.
--- NOTE | 2021-01-17 18:21 | NUR ---
CALLED KEENAN JOHN AROUND 1600 TO INFORM THAT RIGHT LEG WAS VERY SWOLEN AND PAINFUL.
[2021-01-18] VITALS: BP 140/89
[2021-01-18 04:00] VITALS: BP 111/55
--- NOTE | 2021-01-18 04:08 | NUR ---
I have reviewed this patient and I concur with the Shift Assessment completed by the Licensed Practical Nurse today this shift.
[2021-01-18 07:28] LABS: HEMATOCRIT 38.1 % (42.0-54.0); HEMOGLOBIN 11.9 g/dL (13.5-17.5); LYMPHOCYTE ABS# 1.67 10x3/uL (1.32-3.57); MCH 23.4 pg (26.0-34.0); MCHC 31.2 g/dL (31.0-37.0); MCV 74.9 fL (80.0-100.0); NEUTROPHIL ABS# 17.29 10x3/uL (1.78-5.38); PLATELET COUNT 209 10x3/uL (130-400); RBC 5.09 10x6/uL (4.20-6.10); RDW 17.1 % (11.5-14.5); WBC 20.5 10x3/uL (4.8-10.8)
[2021-01-18 08:12] VITALS: BP 141/75
[2021-01-18 08:20] LABS: ALBUMIN 2.5 g/dL (3.4-5.0); ALKALINE PHOSPHATASE 90 U/L (30-120); ALT (SGPT) 28 U/L (10-68); BILIRUBIN - TOTAL 0.31 mg/dL (0.2-1.3); CALC OSMOLALITY 270 mosm/kg (275-300); CALCIUM 8.9 mg/dL (8.5-10.1); CARBON DIOXIDE 23.9 mmol/L (21.0-32.0); CHLORIDE - SERUM 103 mmol/L (98-107); FERRITIN 302 ng/mL (3-244); GLUCOSE 126 mg/dL (74-106); LDH 163 U/L (85-227); MAGNESIUM - SERUM 2.4 mg/dL (1.8-2.4); PHOSPHOROUS 2.6 mg/dL (2.5-4.9); POTASSIUM - SERUM 4.2 mmol/L (3.5-5.1); PROTEIN - SERUM 7.7 g/dL (6.4-8.2); SODIUM 135 mmol/L (136-145); UREA NITROGEN 10 mg/dL (7-18); eGFR NON AFRICAN AMERICAN 87 mL/min (90-120)
[2021-01-18 08:31] LABS: C-REACTIVE PROTEIN 29.6 mg/dL (0.0-0.9)
[2021-01-18 09:04] LABS: ERYTHROCYTE SEDIMENTATION RATE 29 mm/hr (0-15)
[2021-01-18 11:13] VITALS: BP 141/83
[2021-01-18 11:25] LABS: LYMPHOCYTES 10 % (15-50); MONOCYTES 12 % (2-11); NEUTROPHILS 73 % (40-80); PLATELET ESTIMATE NORMAL; ROULEAUX OCC
[2021-01-18 16:36] VITALS: BP 142/92
[2021-01-18 20:39] VITALS: BP 145/88
[2021-01-19 04:31] VITALS: BP 122/73
--- NOTE | 2021-01-19 05:00 | NUR ---
I have reviewed this patient and I concur with the Shift Assessment completed by the Licensed Practical Nurse today this shift.
[2021-01-19 07:15] LABS: ALBUMIN 2.3 g/dL (3.4-5.0); ALKALINE PHOSPHATASE 81 U/L (30-120); ALT (SGPT) 27 U/L (10-68); CALC OSMOLALITY 275 mosm/kg (275-300); CALCIUM 8.7 mg/dL (8.5-10.1); CARBON DIOXIDE 25.8 mmol/L (21.0-32.0); CHLORIDE - SERUM 107 mmol/L (98-107); CREATININE - SERUM 1.1 mg/dL (0.6-1.3); GLUCOSE 113 mg/dL (74-106); MAGNESIUM - SERUM 2.4 mg/dL (1.8-2.4); PHOSPHOROUS 3.2 mg/dL (2.5-4.9); POTASSIUM - SERUM 4.2 mmol/L (3.5-5.1); PROTEIN - SERUM 7.2 g/dL (6.4-8.2); SODIUM 137 mmol/L (136-145); eGFR NON AFRICAN AMERICAN 78 mL/min (90-120)
--- NOTE | 2021-01-19 07:15 | NUR ---
RECEIVE BEDSIDE SHIFT REPORT. RESTING IN BED WITH EYES CLOSED. NO S/S OF DISTRESS PRESENT AT THIS TIME. NPO SINCE MIDNIGHT FOR PROCEDURE TODAY. WILL CONTINUE POC AND SAFETY PRECAUTIONS.
[2021-01-19 07:16] LABS: UREA NITROGEN 14 mg/dL (7-18)
[2021-01-19 07:46] LABS: BASOPHILS 0.2 % (0-2); EOSINOPHILS 0.1 % (0-7); HEMATOCRIT 36.3 % (42.0-54.0); HEMOGLOBIN 11.7 g/dL (13.5-17.5); IMMATURE GRANULOCYTES 0.7 % (0-5); LYMPHOCYTE ABS# 2.66 10x3/uL (1.32-3.57); LYMPHOCYTES 15.7 % (15-50); MCH 23.9 pg (26.0-34.0); MCHC 32.2 g/dL (31.0-37.0); MCV 74.1 fL (80.0-100.0); MONOCYTES 9.5 % (2-11); NEUTROPHIL ABS# 12.52 10x3/uL (1.78-5.38); NEUTROPHILS 73.8 % (40-80); PLATELET COUNT 225 10x3/uL (130-400); RDW 17.2 % (11.5-14.5)
[2021-01-19 08:21] VITALS: BP 129/67
--- NOTE | 2021-01-19 10:47 | NUR ---
PATIENT PRE OP FOR PROCEDURE. RESTING IN BED AWAITING ARRIVAL.
[2021-01-19 12:00] VITALS: BP 125/72
--- NOTE | 2021-01-19 13:33 | NUR ---
PATIENT DOWN FOR PROCEDURE
--- NOTE | 2021-01-19 16:13 | NUR ---
BACK FROM PROCEDURE. DRESSING TO RIGHT GROIN. VITAL SIGNS 140/101, 70, 18, 97% RA. HYDRALAZIN 10MG GIVEN IN RECOVERY. WILL CONTINUE MONITORING.
--- NOTE | 2021-01-19 19:10 | NUR ---
REPORT RECEIVED, PT CARE ASSUMED. PT SITTING UP IN BED, AAOX4, WATCHING TV. REQUESTED ICE WATER, PROVIDED. DENIES ANY OTHER NEEDS AT THIS TIME. BED IN LOWEST, SRX2, CL WITHIN REACH. CPOC.
[2021-01-19 20:00] VITALS: BP 120/84
[2021-01-20 06:19] LABS: ALBUMIN 2.4 g/dL (3.4-5.0); ALKALINE PHOSPHATASE 72 U/L (30-120); ALT (SGPT) 28 U/L (10-68); BILIRUBIN - TOTAL 0.23 mg/dL (0.2-1.3); CALCIUM 8.3 mg/dL (8.5-10.1); CARBON DIOXIDE 24.1 mmol/L (21.0-32.0); CHLORIDE - SERUM 102 mmol/L (98-107); CREATININE - SERUM 1.1 mg/dL (0.6-1.3); PROTEIN - SERUM 6.9 g/dL (6.4-8.2); SODIUM 135 mmol/L (136-145); UREA NITROGEN 14 mg/dL (7-18); eGFR NON AFRICAN AMERICAN 78 mL/min (90-120)
[2021-01-20 06:21] LABS: CALC OSMOLALITY 268 mosm/kg (275-300); GLUCOSE 69 mg/dL (74-106); POTASSIUM - SERUM 3.3 mmol/L (3.5-5.1)
[2021-01-20 06:47] LABS: HEMATOCRIT 38.7 % (42.0-54.0); HEMOGLOBIN 12.1 g/dL (13.5-17.5); LYMPHOCYTE ABS# 3.22 10x3/uL (1.32-3.57); MCH 23.5 pg (26.0-34.0); MCHC 31.3 g/dL (31.0-37.0); MCV 75.3 fL (80.0-100.0); PLATELET COUNT 242 10x3/uL (130-400); RBC 5.14 10x6/uL (4.20-6.10); RDW 17.3 % (11.5-14.5); WBC 13.3 10x3/uL (4.8-10.8)
[2021-01-20 07:00] VITALS: BP 121/67
[2021-01-20 07:32] LABS: LYMPHOCYTES 31 % (15-50); MONOCYTES 6 % (2-11); NEUTROPHILS 62 % (40-80); PLATELET ESTIMATE NORMAL
--- NOTE | 2021-01-20 09:44 | NUR ---
PT AWAKE AND OORIENTED, SITTING UP ON SIDE OF THE BED. PT PRESETS WITH NOTABLE PAIN MARKERS IN HIS FACIAL EXPRESSIONS AND BEHAVIOR. STATES HIS RIGHT LEG IS CONTINUOUSLY HURTING AND GETTING OWRSE WITH TIME. NOTED SWELLING AND LIGHT REDNESS AND WARM TO AREA. CL INR EAH, SRX2
[2021-01-20 15:55] VITALS: BP 120/67
--- NOTE | 2021-01-20 18:14 | NUR ---
PT ALERT AND ORIENTED, LYING IN BED RELAXING AND WATCHING TV. STATES PAIN IS BETTER CONTROLED WITH PAIN PUMP BUT HE STILL HAS IT WHEN HE MOVES. CL IN REACH, SRX2.
--- NOTE | 2021-01-20 20:10 | NUR ---
PT LYING IN BED APPEARS ASLEEP AWAKENS EASILY DENIES ANY NEEDS, WILL CONTINUE TO MONITOR
[2021-01-20 20:50] VITALS: BP 118/66
--- NOTE | 2021-01-20 23:15 | NUR ---
PT REPORTS PAIN TO RLE WITH ANY MVMT REPORTS THIS HAS NOT IMPROVED SINCE PROCEDURE. HE REPORTS THIS FEELS TIGHT AND STIFF. RIGHT GROIN ASSESSED DRESSING CDI NO REDNESS, SWELLING NOTED, PPP
[2021-01-21 01:21] VITALS: BP 122/80
[2021-01-21 05:17] VITALS: BP 120/62
[2021-01-21 06:41] LABS: BASOPHILS 0.4 % (0-2); EOSINOPHILS 1.2 % (0-7); HEMATOCRIT 38.8 % (42.0-54.0); HEMOGLOBIN 12.2 g/dL (13.5-17.5); IMMATURE GRANULOCYTES 3.6 % (0-5); LYMPHOCYTE ABS# 4.08 10x3/uL (1.32-3.57); LYMPHOCYTES 24.7 % (15-50); MCH 23.6 pg (26.0-34.0); MCHC 31.4 g/dL (31.0-37.0); MCV 75.2 fL (80.0-100.0); MONOCYTES 16.9 % (2-11); NEUTROPHIL ABS# 8.79 10x3/uL (1.78-5.38); NEUTROPHILS 53.2 % (40-80); PLATELET COUNT 268 10x3/uL (130-400); RBC 5.16 10x6/uL (4.20-6.10); RDW 17.5 % (11.5-14.5); WBC 16.5 10x3/uL (4.8-10.8)
[2021-01-21 07:00] LABS: ALBUMIN 2.4 g/dL (3.4-5.0); ALKALINE PHOSPHATASE 84 U/L (30-120); ALT (SGPT) 24 U/L (10-68); BILIRUBIN - TOTAL 0.33 mg/dL (0.2-1.3); CALC OSMOLALITY 267 mosm/kg (275-300); CALCIUM 8.8 mg/dL (8.5-10.1); CARBON DIOXIDE 24.3 mmol/L (21.0-32.0); CHLORIDE - SERUM 103 mmol/L (98-107); GLUCOSE 89 mg/dL (74-106); PHOSPHOROUS 3.7 mg/dL (2.5-4.9); POTASSIUM - SERUM 3.6 mmol/L (3.5-5.1); PROTEIN - SERUM 7.2 g/dL (6.4-8.2); SODIUM 135 mmol/L (136-145); UREA NITROGEN 11 mg/dL (7-18); eGFR NON AFRICAN AMERICAN 87 mL/min (90-120)
[2021-01-21 09:31] VITALS: BP 130/76
--- NOTE | 2021-01-21 10:48 | NUR ---
PT AWAKE AND ORIENTED, LYING IN BED WATCHING TV. TOOK ALL MEDICATIONS WITHOUT COMPLICATIONS. ASSISTED MED STUDENT IN WRAPPING PTS RIGHT LEG IN JESUS BANDAGING. PT EXPRESSED 8/10 PAIN, WORSE WITH MOVEMENT. ADMINISTERED PRN DOSE OF DILAUDID. PT RESTING MORE COMFROTABLY NOW. CL IN REACH, SRX2.
--- NOTE | 2021-01-21 16:50 | NUR ---
PT ALERT AND ORIENTED, SWITCHED HOUSE SITTER PUMP TO NEW HOUSE SITTER THAT WORKS APPROPRIATELY. PT PAIN 5/10 AT THIS TIME. CL IN REACH, SRX2. NO COMPLAINTS OR CONCERNS OTHER THAN PAIN AT THIS TIME.
[2021-01-21 17:13] VITALS: BP 115/70
--- NOTE | 2021-01-21 19:30 | NUR ---
pt resting in bed denies any needs, no distress noted will continue to monitor
[2021-01-21 20:29] VITALS: BP 153/79
--- NOTE | 2021-01-21 20:30 | NUR ---
pt resting in bed talking on phone. reports pain has improved to RLE with the monica wrap. denies any needs reports pain controlled. will continue to monitor
[2021-01-22 06:24] LABS: ALBUMIN 2.3 g/dL (3.4-5.0); ALKALINE PHOSPHATASE 77 U/L (30-120); ALT (SGPT) 19 U/L (10-68); BILIRUBIN - TOTAL 0.29 mg/dL (0.2-1.3); CALC OSMOLALITY 268 mosm/kg (275-300); CALCIUM 8.8 mg/dL (8.5-10.1); CARBON DIOXIDE 25.5 mmol/L (21.0-32.0); CHLORIDE - SERUM 104 mmol/L (98-107); GLUCOSE 85 mg/dL (74-106); MAGNESIUM - SERUM 2.2 mg/dL (1.8-2.4); PHOSPHOROUS 3.9 mg/dL (2.5-4.9); POTASSIUM - SERUM 3.7 mmol/L (3.5-5.1); PROTEIN - SERUM 7.1 g/dL (6.4-8.2); SODIUM 136 mmol/L (136-145); UREA NITROGEN 8 mg/dL (7-18); eGFR NON AFRICAN AMERICAN 87 mL/min (90-120)
[2021-01-22 06:34] LABS: BASOPHILS 0.3 % (0-2); EOSINOPHILS 1.7 % (0-7); HEMATOCRIT 36.9 % (42.0-54.0); HEMOGLOBIN 11.6 g/dL (13.5-17.5); LYMPHOCYTE ABS# 3.74 10x3/uL (1.32-3.57); LYMPHOCYTES 22.8 % (15-50); MCH 23.6 pg (26.0-34.0); MCHC 31.4 g/dL (31.0-37.0); MCV 75.2 fL (80.0-100.0); MONOCYTES 11.3 % (2-11); NEUTROPHIL ABS# 9.52 10x3/uL (1.78-5.38); NEUTROPHILS 57.9 % (40-80); PLATELET COUNT 263 10x3/uL (130-400); RBC 4.91 10x6/uL (4.20-6.10); RDW 17.6 % (11.5-14.5); WBC 16.4 10x3/uL (4.8-10.8)
--- NOTE | 2021-01-22 08:13 | NUR ---
PT RESTING COMFORTABLY, EYES CLSOED, BREATHS EVEN REGULAR AND UNLABORED. CLIN REACH, SRX2.
[2021-01-22 09:00] VITALS: BP 143/76
--- NOTE | 2021-01-22 09:24 | NUR ---
I have reviewed this patient and I concur with the Shift Assessment completed by the Licensed Practical Nurse today this shift.
--- NOTE | 2021-01-22 10:31 | NUR ---
PT AWAKE AND ORIENTED, LYING IN BED. STATES PAIN IS BETTER CONTROLLED.
[2021-01-22 13:35] VITALS: BP 130/79
[2021-01-22 20:00] VITALS: BP 153/83
--- NOTE | 2021-01-22 22:48 | NUR ---
GRAVEL WEIGHER VIAL REPLACED D/T EMPTY. PT DENIES PAIN, INSTRUCTED TO USE IS, SCD DECLINED DUE TO PAIN. PT IS ON LOVENOX. PT RESTING IN BED WATCHING TV. DENIES ANY NEEDS AT THIS TIME. WILL CONTINUE TO MONITOR
[2021-01-23] VITALS: BP 109/63
[2021-01-23 04:00] VITALS: BP 114/72
[2021-01-23 06:25] LABS: ALBUMIN 2.1 g/dL (3.4-5.0); ALKALINE PHOSPHATASE 72 U/L (30-120); ALT (SGPT) 17 U/L (10-68); BILIRUBIN - TOTAL 0.24 mg/dL (0.2-1.3); CALC OSMOLALITY 264 mosm/kg (275-300); CALCIUM 8.8 mg/dL (8.5-10.1); CARBON DIOXIDE 27.4 mmol/L (21.0-32.0); CHLORIDE - SERUM 103 mmol/L (98-107); GLUCOSE 95 mg/dL (74-106); POTASSIUM - SERUM 3.7 mmol/L (3.5-5.1); PROTEIN - SERUM 6.9 g/dL (6.4-8.2); SODIUM 134 mmol/L (136-145); eGFR NON AFRICAN AMERICAN 87 mL/min (90-120)
[2021-01-23 06:28] LABS: UREA NITROGEN 5 mg/dL (7-18)
[2021-01-23 06:46] LABS: BASOPHILS 0.1 % (0-2); IMMATURE GRANULOCYTES 5.3 % (0-5); LYMPHOCYTE ABS# 3.43 10x3/uL (1.32-3.57); LYMPHOCYTES 24.8 % (15-50); MCH 23.5 pg (26.0-34.0); MCHC 31.4 g/dL (31.0-37.0); MCV 74.8 fL (80.0-100.0); MEAN PLATELET VOLUME 11.4 fL (7.4-10.4); MONOCYTES 9.7 % (2-11); NEUTROPHIL ABS# 8.04 10x3/uL (1.78-5.38); NEUTROPHILS 58.1 % (40-80); PLATELET COUNT 287 10x3/uL (130-400); RBC 4.68 10x6/uL (4.20-6.10); RDW 17.5 % (11.5-14.5); WBC 13.9 10x3/uL (4.8-10.8)
--- NOTE | 2021-01-23 07:15 | NUR ---
RECEIVE SHIFT REPORT. RESTING IN BED. AWAKE AND ALERT. ON FEDERAL AIR MARSHAL FOR PAIN. RIGHT LEG WRAPPED WITH BANDAGE. REFUSE SCD'S. LOVENOX INJECTIONS DAILY. CALL LIGHTIN REACH. CONTINUE POC AND SAFETY PRECAUTIONS.
[2021-01-23 07:59] VITALS: BP 146/106
--- NOTE | 2021-01-23 08:12 | OP ---
PATIENT NAME: CHANDRAKANT VILLELA MEDICAL RECORD: [id number] :78 LOCATION:D.M2 D.2135 ADMISSION DATE:01/17/21 SURGEON: MARLENA BRISCOE MD DATE OF OPERATION: 01/19/2021 PREOPERATIVE DIAGNOSES: 1. Right inguinal lymphadenopathy. 2. Morbid obesity. POSTOPERATIVE DIAGNOSES: 1. Right inguinal lymphadenopathy. 2. Morbid obesity. PROCEDURE: Right inguinal lymph node biopsy. SURGEON: Marlena Briscoe MD REPORT OF PROCEDURE: The patient's right groin was prepped and draped in sterile fashion. Using ultrasound guidance, we found the area where the lymph nodes were present. An oblique incision was made overlying the inguinal lymph node. Electrocautery was used to dissect through the subcutaneous tissue. We found this lymph node deep in the subcutaneous space overlying the muscles. This lymph node was about 5 cm in greatest diameter, was completely excised. There was some bleeding present from some surrounding vascular structures and these were clipped to discontinue any bleeding. The wound was irrigated out with normal saline and reapproximated with interrupted 3-0 Vicryl and skin was closed with running subcutaneous 5-0 Monocryl. COMPLICATIONS: None. CONDITION: Stable. ANESTHESIA: TIVA and local. BLOOD LOSS: 50 mL. TRANSINT:[id number] Voice Confirmation ID: [id number] DOCUMENT ID: [id number] MARLENA BRISCOE MD at 0812 CC: [id number] DICTATION DATE: 01/19/21 145 PLANISHING HAMMER OPERATOR: 01/19/212032 ADM IN [facility] [place] [id number] [place] [address]
[2021-01-23] MEDS ORDERED: ADOXA100 MG PO (09:24)
--- NOTE | 2021-01-23 09:44 | MORECARE ---
CASE MANAGEMENT DISCHARGE SUMMARY PATIENT: CHANDRAKANT VILLELA UNIT: [id number] ADM DATE: 01/17/21 AGE: 40 : 78 SEX: M ROOM/BED: D.2135 AUTHOR: BUCK MCKINNEY PHYSICIAN: REFERRING PHYSICIAN: ADITYA LUCERO MD DATE OF SERVICE: 01/23/21 Discharge Plan Patient Name: CHANDRAKANT VILLELA [facility] [facility] 1980 Planned Disposition: Home Anticipated Discharge Date: Discharge Date: Expected LOS: Initial Reviewer: [email or web address] Initial Review Date: 01/23/2021 Generated: 01/23/21 10:43 am DCPIA - Discharge Planning Initial Assessment Updated by [email or web address]: Diana Frank on 01/23/21 9:42 am * Is the patient Alert and Oriented? Yes * How many steps to enter\exit or inside your home? 1/0 * PCP Cyndie Couch * Pharmacy [facility] * Preadmission Environment Home with Family * ADLs Independent * Equipment None * List name and contact numbers for known caregivers / representatives who currently or will assist patient after discharge: Daniel Villela - [facility] - [phone] * Verbal permission to speak to the caregivers and representatives has been obtained from the patient. Yes * Community resources currently utilized None * Additional services required to return to the preadmission environment? No * Can the patient safely return to the preadmission environment? Yes * Has this patient been hospitalized within the prior 30 days at any hospital? No Patient Name: CHANDRAKANT VILLELA Page [phone] at 0944 All edits/amendments must be made on the electronic document DICTATION DATE: 01/23/21942 CABLE ASSEMBLER AND SWAGER: JINA 01/23/21942 RPT#: [id number] DC DATE: STATUS: ADM IN [facility] [address] [place] [address] END OF REPORT
--- NOTE | 2021-01-23 09:51 | MORECARE ---
CASE MANAGEMENT DISCHARGE SUMMARY PATIENT: CHANDRAKANT VILLELA UNIT: [id number] ADM DATE: 01/17/21 AGE: 40 : 78 SEX: M ROOM/BED: D.2255 AUTHOR: BUCK MCKINNEY PHYSICIAN: REFERRING PHYSICIAN: ADITYA LUCERO MD DATE OF SERVICE: 01/23/21 Discharge Plan Patient Name: CHANDRAKANT VILLELA Facility: [facility]:[place] : 1980 Planned Disposition: Home Anticipated Discharge Date: Discharge Date: Expected LOS: Initial Reviewer: [email or web address] Initial Review Date: 01/23/2021 Generated: 01/23/21 10:50 am Comments DCP- Discharge Planning Updated by [email or web address]: Diana Frank on 01/23/21 8:[address] Patient Name: CHANDRAKANT VILLELA Admission Status: ER Accout number: [id number] Admission Date: 01-17-2021 : 1980 Admission Diagnosis:SEPSIS, UNSPECIFIED ORGANISM Attending: ADITYA LUCERO Current LOS: 6 Anticipated DC Date: Planned Disposition: Home Primary Insurance: [employer]ED [employer]ICA[employer] Discharge Planning Comments: CM met with patient to complete initial dc planning assessment. CM educated patient on the CM role and verbal consent given by patient to complete assessment. CM verified patient's address, phone number, and emergency contact phone numbers. Patient lives at home with his spouse. At discharge patient plans to return and feels this is a safe discharge. CM discussed availability of home health, rehab services, and medical equipment. Patient denied known discharge needs at this time. He states he drove himself here and feels safe to drive himself home. He states he has not used his pain medicine button at all today. I instructed him to ask his nurse when it is safe for him to drive home. CM will continue to follow and will assist as needed with dc plans/needs. Motion Designer: Diana Frank DCPIA - Discharge Planning Initial Assessment Updated by [email or web address]: Diana Frank on 01/23/21 9:42 am * Is the patient Alert and Oriented? Yes * How many steps to enter\exit or inside your home? 1/0 * PCP Cyndie Couch * Pharmacy [facility] [address] * Preadmission Environment Home with Family * ADLs Independent * Equipment None * List name and contact numbers for known caregivers / representatives who currently or will assist patient after discharge: Daniel Villela - spouse - [phone] * Verbal permission to speak to the caregivers and representatives has been obtained from the patient. Yes * Community resources currently utilized None * Additional services required to return to the preadmission environment? No * Can the patient safely return to the preadmission environment? Yes * Has this patient been hospitalized within the prior 30 days at any hospital? No Last DP export: 01/23/21 8:44 am Patient Name: CAHNDRAKANT VILLELA Page [phone] at 0951 All edits/amendments must be made on the electronic document DICTATION DATE: 01/23/21949 MOTION PICTURE NARRATOR: JINA 01/23/21949 RPT#: [id number] DC DATE: STATUS: ADM IN [facility] [address] [place] [address] END OF REPORT
--- NOTE | 2021-01-23 11:16 | NUR ---
PAIN MEDICATION GIVEN AND GAS PLUMBER STOPPED. WILL REASSESS PAIN LEVEL PER PROTOCOL. DISCHARGE ORDER IN.
--- NOTE | 2021-01-23 13:05 | NUR ---
NURSE DOING DC ON PATIENT PATIENT'S NURSE
--- NOTE | 2021-01-23 13:40 | NUR ---
PATIENT COMPLAINTS OF RIGHT LEG DRESSING HURTING FOOT. RIGHT FOOT EDEMA 2+. PULSE PALPABLE. BETZY BROWNLEE D/C LEFT AC IV, TIP INTACT. TELEMETRY OFF. PATIENT IN SHOWER. WILL GIVE DISCHARGE INSTRUCTIONS AFTER SHOWER.
--- NOTE | 2021-01-23 14:31 | NUR ---
DISCHARGE INSTRUCTIONS GIVEN VERBALLY AND HANDOUTS PROVIDED. WRITTEN PRESCRIPTION GIVEN. TAKEN DOWN TO ED VIA WHEELCHAIR. DRIVING SELF. REMAINS FREE FROM INJURY WHILE IN CARE.
--- NOTE | 2021-01-24 09:17 | MORECARE ---
CASE MANAGEMENT DISCHARGE SUMMARY PATIENT: CHANDRAKANT VILLELA UNIT: [id number] ADM DATE: 01/17/21 AGE: 40 : 78 SEX: M ROOM/BED: D.8115 AUTHOR: BUCK MCKINNEY PHYSICIAN: REFERRING PHYSICIAN: ADITYA LUCERO MD DATE OF SERVICE: 01/24/21 Discharge Plan Patient Name: CHANDRAKANT VILLELA Facility: [facility]:[place] : 1980 Planned Disposition: Home Anticipated Discharge Date: Discharge Date: 01/23/2021 Expected LOS: Initial Reviewer: [email or web address] Initial Review Date: 01/23/2021 Generated: 01/24/21 10:17 am Comments DCP- Discharge Planning Updated by [email or web address]: Diana Frank on 01/23/21 8:[address] Patient Name: CHANDRAKANT VILLELA Admission Status: ER Accout number: [id number] Admission Date: 01-17-2021 : 1980 Admission Diagnosis:SEPSIS, UNSPECIFIED ORGANISM Attending: ADITYA LUCERO Current LOS: 6 Anticipated DC Date: Planned Disposition: Home Primary Insurance: [employer]ED [employer]ICA[employer] Discharge Planning Comments: CM met with patient to complete initial dc planning assessment. CM educated patient on the CM role and verbal consent given by patient to complete assessment. CM verified patient's address, phone number, and emergency contact phone numbers. Patient lives at home with his spouse. At discharge patient plans to return and feels this is a safe discharge. CM discussed availability of home health, rehab services, and medical equipment. Patient denied known discharge needs at this time. He states he drove himself here and feels safe to drive himself home. He states he has not used his pain medicine button at all today. I instructed him to ask his nurse when it is safe for him to drive home. CM will continue to follow and will assist as needed with dc plans/needs. News Camera Person: Diana Frank DCPIA - Discharge Planning Initial Assessment Updated by [email or web address]: Diana Frank on 01/23/21 9:42 am * Is the patient Alert and Oriented? Yes * How many steps to enter\exit or inside your home? 1/0 * PCP Cyndie Couch * [facility] * Preadmission Environment Home with Family * ADLs Independent * Equipment None * List name and contact numbers for known caregivers / representatives who currently or will assist patient after discharge: Daniel Villela - [facility] - [phone] * Verbal permission to speak to the caregivers and representatives has been obtained from the patient. Yes * Community resources currently utilized None * Additional services required to return to the preadmission environment? No * Can the patient safely return to the preadmission environment? Yes * Has this patient been hospitalized within the prior 30 days at any hospital? No Last DP export: 01/23/21 8:51 am Patient Name: CHANDRAKANT VILLELA Page [phone] at 0917 All edits/amendments must be made on the electronic document DICTATION DATE: 01/24/21916 PROFESSOR OF PHILOSOPHY: JINA 01/24/21916 RPT#: [id number] DC DATE:01/23/21 STATUS: DIS IN [facility] [address] [place] [address] END OF REPORT
== END 2021-01-23 14:57 | disposition home or self-care (01) | DRG 872 ==
LOC: D.ER 08:50 → D.EDHOLD 12:17 → D.M2 12:17
PROVIDERS: Family Medicine; ADMIT Emergency Medicine; ATTEND Emergency Medicine
DX: A41.9 Sepsis, unspecified organism (principal); Z68.44 Body mass index [BMI] 60.0-69.9, adult; L03.90 Cellulitis, unspecified; R09.02 Hypoxemia; E66.01 Morbid (severe) obesity due to excess calories